=== PATIENT | male | born 1980 | race Caucasian/White ===

== ENCOUNTER 2020-02-27 13:52 | Emergency (ER) | payer MEDICAID ==
[~2020-02-27] VITALS: Ht 157.5 cm; Wt 49.9 kg
[2020-02-27 14:03] VITALS: BP_SYST 137
[2020-02-27] MEDS ORDERED: LORazepam 2 MG/ML VIAL IVP ONE (14:15)
[2020-02-27] MEDS ORDERED: NACL 0.9% 1,000 ML IV ONE (14:30)
[2020-02-27 14:37] LABS: BASOPHILS # (AUTO) 0.1 K/uL (0.0-0.2); BASOPHILS % (AUTO) 0.7 % (0.0-2.0); EOSINOPHILS # (AUTO) 0.1 K/uL (0.0-0.4); EOSINOPHILS % (AUTO) 1.1 % (0.0-4.0); HEMATOCRIT 45.5 % (36-54); HEMOGLOBIN 15.6 g/dL (14.0-18.0); LYMPHOCYTES # (AUTO) 2.9 K/uL (1.0-5.5); MEAN CORPUSCULAR HEMOGLOBIN 32 pg (27-31); MEAN CORPUSCULAR HGB CONC 34 % (32-36); MEAN CORPUSCULAR VOLUME 92 fL (79.0-98.0); MONOCYTES # (AUTO) 0.5 K/uL (0.0-1.0); MONOCYTES % (AUTO) 6.1 % (1.7-9.3); NEUTROPHILS # (AUTO) 5.3 K/uL (1.8-7.7); NEUTROPHILS % (AUTO) 59.1 % (40.0-70.0); PLATELET COUNT (AUTO) 210 K/uL (130-430); RED BLOOD CELL COUNT(AUTO) 4.93 MIL/uL (4.2-6.2); RED CELL DISTRIBUTION WIDTH 13.5 % (9.0-15.0); WHITE BLOOD COUNT (AUTO) 8.9 K/uL (4.8-10.8)
[2020-02-27 14:54] LABS: ANION GAP 15 (5-15); CALCIUM 8.8 mg/dL (8.4-11.0); CHLORIDE 104 mmol/L (98-107); GLUCOSE 116 mg/dL (70-99); POTASSIUM 3.3 mmol/L (3.5-5.1); SODIUM SERUM 142 mmol/L (136-145); UREA NITROGEN, BLOOD 5 mg/dL (8-21)
[2020-02-27 14:56] LABS: BILIRUBIN,URINE NEGATIVE (NEGATIVE); BLOOD, URINE NEGATIVE (NEGATIVE); CLARITY/URINE CLEAR (CLEAR); COLOR,URINE YELLOW (YELLOW); GLUCOSE,URINE NEGATIVE (NEGATIVE); KETONES,URINE NEGATIVE (NEGATIVE); LEUKOCYTE ESTERASE ,URINE NEGATIVE (NEGATIVE); NITRITE, URINE NEGATIVE (NEGATIVE); PH,URINE 5.5 (5.0-8.0); PROTEIN URINE TRACE (NEGATIVE); UROBILINOGEN,URINE 0.2 (0.2-1.0)
[2020-02-27 14:57] LABS: GFR AFRICAN AMERICAN 120 mL/min (>90)
[2020-02-27 15:04] LABS: BARBITURATE, URINE NEGATIVE (NEG <=200); BENZODIAZEPINE, URINE NEGATIVE (NEG <=150); CANNABINOID, URINE NEGATIVE (NEG <=50); COCAINE, URINE NEGATIVE (NEG <=150); METHAMPHETAMINES SCREEN,URINE NEGATIVE (NEG <=500); OPIATE, URINE NEGATIVE (NEG <=100); PHENCYCLIDINE SCREEN,URINE NEGATIVE (NEG <=25); UR TRICYCLIC ANTIDEPRESSANTS NEGATIVE (NEG <=300); URINE AMPHETAMINE NEGATIVE (NEG <=500); URINE METHADONE NEGATIVE (NEG <=200); URINE OXYCODONE SCREEN NEGATIVE (NEG <=100); URINE PROPOXYPHENE SCREEN NEGATIVE (NEG <=300)
[2020-02-27 15:13] LABS: ALANINE AMINOTRANSFERASE 100 U/L (12-78); ASPARTATE AMINOTRANSFERASE 38 U/L (10-37); FREE T4 (FREE THYROXINE) 0.9 ng/dl (0.8-1.5); TOTAL BILIRUBIN 0.3 mg/dL (0.0-1.0)
[2020-02-27 15:22] LABS: ALCOHOL, BLOOD < 3 mg/dL (<10)
[2020-02-27] MEDS ORDERED: ACETAMINOPHEN 325 MG TABLET PO ONE (15:45)
[2020-02-27 15:52] VITALS: BP_SYST 137
== END 2020-02-27 15:53 | disposition home or self-care (01) ==
LOC: SED 13:52
DX: E87.6 Hypokalemia (principal); R56.9 Unspecified convulsions; Z88.6 Allergy status to analgesic agent; Z88.8 Allergy status to other drugs, medicaments and biological substances
CPT/HCPCS: 36415; 70450; 71045; 74018; 80053; 80307; 81003; 83605; 84439; 84484; 85025; 85610; 87040; 93005; 96374; 99285; G0482; J2060; J7030